=== PATIENT | female | born 2000 | race African-American/Black ===

== ENCOUNTER 2021-11-28 10:44 | Emergency (ER) | payer OTHER ==
[~2021-11-28] VITALS: Ht 167.6 cm; Wt 81.6 kg
[2021-11-28 10:52] VITALS: BP_SYST 133
--- NOTE | 2021-11-28 10:52 | NUR ---
Pt. bib friend with c/o vaginal bleeding, per pt. she is with EDC of 04/23/2022 making her 19 09/25, states woke up and when voided and wiped noticed blood 2 X, denies bleeding otherwise but does c/o cramping on and off and some vaginal discomfort all starting today, pt. has had PNC with Ervin with no complications
--- NOTE | 2021-11-28 10:52 | NUR ---
Placed in room 7 . Placed on cardiac sonographer, blood pressure machine and pulse oximeter. To gown for exam. Side rails up. Report given to DAVINA SORIANO.
--- NOTE | 2021-11-28 10:57 | NUR ---
ER at bedside examining patient.
[2021-11-28 11:27] LABS: BILIRUBIN,URINE NEGATIVE (NEGATIVE); CLARITY/URINE SL CLOUDY (CLEAR); COLOR,URINE YELLOW (YELLOW); GLUCOSE,URINE NEGATIVE (NEGATIVE); KETONES,URINE NEGATIVE (NEGATIVE); LEUKOCYTE ESTERASE ,URINE 2+ (NEGATIVE); NITRITE, URINE NEGATIVE (NEGATIVE); PH,URINE 6.5 (5.0-8.0); PROTEIN URINE TRACE (NEGATIVE); UROBILINOGEN,URINE 0.2 (0.2-1.0)
[2021-11-28 11:33] LABS: BASOPHILS % (AUTO) 0.5 % (0.0-2.0); EOSINOPHILS % (AUTO) 0.5 % (0.0-4.0); HEMATOCRIT 35.7 % (36-48); LYMPHOCYTES # (AUTO) 3.1 K/uL (1.0-5.5); LYMPHOCYTES % (AUTO) 32.4 % (20.5-51.5); MEAN CORPUSCULAR HEMOGLOBIN 28 pg (27-31); MEAN CORPUSCULAR HGB CONC 34 % (32-36); MEAN CORPUSCULAR VOLUME 84 fL (79.0-98.0); MONOCYTES # (AUTO) 0.7 K/uL (0.0-1.0); MONOCYTES % (AUTO) 7.2 % (1.7-9.3); NEUTROPHILS # (AUTO) 5.7 K/uL (1.8-7.7); NEUTROPHILS % (AUTO) 59.4 % (40.0-70.0); PLATELET COUNT (AUTO) 317 K/uL (130-430); RED BLOOD CELL COUNT(AUTO) 4.23 MIL/uL (4.2-6.2); RED CELL DISTRIBUTION WIDTH 13.7 % (9.0-15.0); WHITE BLOOD COUNT (AUTO) 9.6 K/uL (4.8-10.8)
[2021-11-28 11:34] LABS: BLOOD, URINE TRACE (NEGATIVE)
--- NOTE | 2021-11-28 11:45 | NUR ---
Patient transported to radiology via wheelchair, accompanied by staff.
[2021-11-28 11:53] LABS: BACTERIA,URINE FEW /HPF (None Seen)
--- NOTE | 2021-11-28 14:34 | NUR ---
Patient given written and verbal discharge instructions and verbalizes understanding. DR ELIZABETH discussed with patient the results and treatment provided. Patient in stable condition. ID arm band removed. Patient educated to follow up with PMD. Pain Scale 0. Opportunity for questions provided and answered.
[2021-11-28 14:36] VITALS: BP_SYST 119
== END 2021-11-28 14:34 | disposition home or self-care (01) ==
LOC: SED 10:44
DX: O20.0 Threatened abortion (principal); Z3A.17 17 weeks gestation of pregnancy
CPT/HCPCS: 36415; 76805-TC; 81000; 84702; 85025; 86900; 86901; 87086; 99284